=== PATIENT | female | born 2000 | race Caucasian/White ===

== ENCOUNTER 2022-10-31 12:53 | Emergency (ER) | payer MEDICAID ==
[~2022-10-31] VITALS: Ht 167.6 cm; Wt 80.0 kg
[2022-10-31 12:54] VITALS: BP 175/106
== END 2022-10-31 16:01 | disposition left against medical advice (07) ==
LOC: ER 12:53
DX: R10.9 Unspecified abdominal pain (principal)
CPT/HCPCS: 99281

== ENCOUNTER 2023-02-03 16:56 | Emergency (ER) | payer MEDICAID ==
[~2023-02-03] VITALS: Ht 165.1 cm; Wt 64.0 kg
[2023-02-03 17:28] VITALS: BP 117/57
[2023-02-03] MEDS ORDERED: ONDANSETRON 4MG ODT PO ONE (18:45)
[2023-02-03] MEDS ORDERED: MAGNESIUM/ALUMINUM HYDROXIDE/SIMETHICONE 30ML UDC PO ONE (18:45)
[2023-02-03 19:15] LABS: BASOPHILS % 0.3 % (0.0-2.0); EOSINOPHILS % 1.2 % (0.0-5.0); HEMATOCRIT. 38.8 % (36.0-48.0); LYMPHOCYTES % 15.1 % (20.0-50.0); MEAN CORPUSCULAR HEMOGLOBIN 29.6 pg (28.0-32.0); MEAN CORPUSCULAR VOLUME 88.7 fL (81.0-99.0); MEAN PLATELET VOLUME 8.3 fl (7.4-10.4); MONOCYTES % 6.8 % (2.0-8.0); NEUTROPHILS % 76.6 % (40.0-76.0); PLATELET 263 x1000/uL (130-400); RED BLOOD CELL COUNT 4.38 mill/uL (4.2-5.4); RED CELL DISTRIBUTION WIDTH 13.2 % (11.6-14.6)
[2023-02-03 19:20] LABS: CHLORIDE 105 mEq/L (98-107)
[2023-02-03] MEDS ORDERED: MAG355OR21 MT (19:55)
[2023-02-03 20:24] LABS: B-HCG QUANTITATIVE 4308 mIU/mL (<3)
== END 2023-02-03 20:24 | disposition home or self-care (01) ==
LOC: ER 16:56
DX: O99.612 Diseases of the digestive system complicating pregnancy, second trimester (principal); K92.9 Disease of digestive system, unspecified; K29.70 Gastritis, unspecified, without bleeding; Z3A.18 18 weeks gestation of pregnancy
CPT/HCPCS: 36415; 80053; 84702; 85025; 86850; 86900; 86901; 99283; Q0162

== ENCOUNTER 2023-02-25 07:31 | Emergency (ER) | payer MEDICAID ==
[~2023-02-25] VITALS: Ht 165.1 cm; Wt 66.7 kg
[~2023-02-25 07:31] MED LIST: MAG355OR21 MT
[2023-02-25] MEDS ORDERED: ACET-2708 MT (08:37)
[2023-02-25] MEDS ORDERED: AM250 MT (08:37)
[2023-02-25] MEDS ORDERED: ACETAMINOPHEN 325MG TABLET PO ONE (08:45)
[2023-02-25] MEDS ORDERED: AMOXICILLIN 500 MG CAPSULE PO ONE (08:45)
[2023-02-25 09:26] VITALS: BP 113/67
== END 2023-02-25 09:36 | disposition home or self-care (01) ==
LOC: ER 07:31
DX: K08.9 Disorder of teeth and supporting structures, unspecified (principal); O99.612 Diseases of the digestive system complicating pregnancy, second trimester; Z3A.20 20 weeks gestation of pregnancy; K04.7 Periapical abscess without sinus
CPT/HCPCS: 81025; 99283